=== PATIENT | male | born 1965 | race Caucasian/White ===

== ENCOUNTER → 2018-01-25 | Outpatient (CLI) | payer OTHER ==
[~2018-01-25] MED LIST: CEPH500 PO; CRUTCH3 USE; CYAN500 PO; CYCL10 PO; DIAZ5 PO; DOCU100 PO; ESCI5 PO; GINKO; HYDACE5 PO; HYDMOR2 PO; OXYACE5T PO; Pepto-Bism525 MG/15 PO; Prilosec Otc20 MG PO; RXHYDMOR2 PO; RXLORA1 PO; TETR250 PO; TOCO400 PO; ZINC15 PO; [UNRECOGNIZED DRUG - CODE] PO
== END | disposition home or self-care (01) ==
LOC: LAB SHORT 17:10 → LAB 17:10
DX: L30.9 Dermatitis, unspecified (principal)
CPT/HCPCS: 87070; 87205; 87220

== ENCOUNTER → 2020-03-19 | Outpatient (CLI) | payer OTHER | END | disposition home or self-care (01) | LOC: LAB 13:25 → LAB SHORT 13:25 | DX: R10.9 Unspecified abdominal pain (principal) | CPT/HCPCS: 87086 ==

== ENCOUNTER → 2020-10-12 | Outpatient (CLI) | payer OTHER | LOC: LAB SHORT 16:00 → LAB 16:00 | DX: L30.9 Dermatitis, unspecified (principal) | CPT/HCPCS: 87252; 87254 ==